=== PATIENT | female | born 1960 | race Caucasian/White ===

== ENCOUNTER 2019-07-01 13:44 | Inpatient (IN) | payer OTHER ==
[~2019-07-01] VITALS: Ht 162.6 cm; Wt 70.3 kg
[~2019-07-01 13:44] MED LIST: HYDROmorphone 1 MG/ML AMP ONE; LIDOCAINE 2% 100 MG/5 ML SYR IVP ONE
[2019-07-01 14:03] VITALS: BP 119/74
--- NOTE | 2019-07-01 14:03 | NUR ---
PT TRIAGED, SENT BACK TO LOBBY AWAITING FOR BED
[2019-07-01] MEDS ORDERED: IBUPROFEN 600 MG TAB PO ONE (14:20)
--- NOTE | 2019-07-01 14:45 | NUR ---
Patient ambulated to bed 5.
--- NOTE | 2019-07-01 14:50 | NUR ---
PT BIB FAMILY C/O BURNING EPIGASTRIC PAIN THAT RADIATES TO RUQ AND LUQ PAIN AT 8/10 X5 DAYS, INCREASES W/ EATING GREASY FOODS. + NAUSEA PMH:HYPERLIPIDEMIA
[2019-07-01 14:53] LABS: APPEARANCE,URINE CLEAR (CLEAR); BILIRUBIN,URINE 2+ (NEGATIVE); BLOOD, URINE 1+ (NEGATIVE); COLOR,URINE YELLOW (YELLOW); LEUKOCYTE ESTERASE ,URINE TRACE (NEGATIVE); NITRITE, URINE NEGATIVE (NEGATIVE); UGLUCOSE NEGATIVE (NEGATIVE)
[2019-07-01] MEDS ORDERED: NACL 0.9% 1,000 ML IV ONE (14:55)
[2019-07-01 14:59] LABS: BASOPHILS % (AUTO) 0.3 % (0.0-2.0); EOSINOPHILS # (AUTO) 0.1 K/uL (0-0.4); EOSINOPHILS % (AUTO) 0.8 % (0.0-4.0); HEMATOCRIT 40.2 % (36-48); HEMOGLOBIN 13.3 g/dL (12.0-16.0); LYMPHOCYTES % (AUTO) 8.6 % (20.5-51.1); MEAN CORPUSCULAR HEMOGLOBIN 30 pg (27-31); MEAN CORPUSCULAR HGB CONC 33 g/dL (33-37); MEAN CORPUSCULAR VOLUME 89.6 fL (80-94); MONOCYTES # (AUTO) 0.9 K/uL (0.8-1.0); MONOCYTES % (AUTO) 8.3 % (1.7-9.3); NEUTROPHILS # (AUTO) 9.2 K/uL (1.8-7.7); PLATELET COUNT (AUTO) 318 K/uL (140-450); RED BLOOD CELL COUNT(AUTO) 4.49 MIL/uL (4.20-5.40); RED CELL DISTRIBUTION WIDTH 13.5 % (11.6-13.7); WHITE BLOOD COUNT (AUTO) 11.2 K/uL (4.8-10.8)
--- NOTE | 2019-07-01 15:08 | NUR ---
ER AT BEDSIDE
[2019-07-01 15:14] LABS: ANION GAP 16.6 (8-16); CARBON DIOXIDE 23.1 mmol/L (21-32); CREATININE 0.9 mg/dL (0.6-1.3); POTASSIUM 3.7 mmol/L (3.5-5.1)
[2019-07-01 15:21] LABS: TOTAL BILIRUBIN 1.4 mg/dL (0.0-1.0)
[2019-07-01] MEDS ORDERED: metroNIDAZOLE 500 MG/NS PREMIX 100 ML IV ONE (15:40)
--- NOTE | 2019-07-01 15:58 | NUR ---
Pt states she takes a medication for cholesterol but is unable to recall name and dosage but states she takes it once at nights.
[2019-07-01] MEDS ORDERED: cefTRIAXone 1,000 MG VIAL ONE (16:02)
--- NOTE | 2019-07-01 16:19 | NUR ---
LAB AT BEDSIDE FOR BLOOD CULTURE
--- NOTE | 2019-07-01 17:06 | NUR ---
SURGEON DR FULLER AT BEDSIDE
[2019-07-01] MEDS ORDERED: ONDANSETRON 4 MG/2 ML VIAL IVP PRN (17:10)
[2019-07-01] MEDS ORDERED: LORazepam 2 MG/ML VIAL IVP PRN (17:10)
[2019-07-01] MEDS ORDERED: MORPHINE SULFATE 4 MG/ML SYR IVP PRN (17:10)
[2019-07-01] MEDS ORDERED: ZOLPIDEM 5 MG TAB PO PRN (17:15)
--- NOTE | 2019-07-01 18:00 | NUR ---
Patient will be admitted to care of DR PATEL. Admited to MED/SURG. Will go to room 106B. Belongings list completed. Report to DARION DAVIS.
--- NOTE | 2019-07-01 18:00 | NUR ---
RECEIVED BEDSIDE REPORT FROM ER NURSE. PATIENT IS AWAKE, ALERT AND ORIENTEDX4. NO SIGNS OF DISTRESS ON RA. SKIN IS INTACT. IV ON L WRIST 20G. CLEAN, DRY AND INTACT. AMBULATORY. CONTINENT. ABLE TO MAKE NEEDS KNOWN. IRISH SPEAKER. PATIENT UNDERSTANDS NO OPIOIDS AT THIS TIME FOR NM SCAN AND NPO. WILL CONTINUE TO MONITOR. MRSA SWAB DONE. CALL LIGHT WITHIN REACH. Addendum: 07/01/19 at 1914 by Edilia Constantino RN B/P 127/75 HR 87 TEMP 98.4 96%RA RR 18
[2019-07-01] MEDS: LACTATED RINGERS 1,000 ML IV SCH (18:28)
--- NOTE | 2019-07-01 19:14 | NUR ---
GAVE BEDSIDE REPORT TO INFORMATION SECURITY MANAGER NURSE. PATIENT ENDORSED IN STABLE CONDITION
[2019-07-01 19:30] VITALS: BP 112/72
--- NOTE | 2019-07-01 19:30 | NUR ---
Admitted from ER TO MED SURGICAL UNIT , with chief complaint of ABDOMINAL PAIN FOR ONE WEEK, 59 y/o ,Female, Cooperative, A/OX4. RESPIRATION EVEN AND UNLABORED. IV OF LR AT 80 ML/HR INFUSING LEFT WRIST G20. INDEPENDENT, ABLE TO AMBULATE BY HERSELF. NPO FOR HIDA SCAN. HEAD TO TOE ASSESSMENT DONE WITH CHARGE NURSE BIJU, SKIN IS INTACT. PLAN OF CARE FOR THE SHIFT DISCUSSED WITH PATIENT AND DAUGHTER. VERBALIZED UNDERSTANDING. DENIES PAIN 0/10.oriented to call light, bed, phone,television, bathroom, smoking policy,visiting hours, procedures, ID bracelet on. Belongings list checked.
--- NOTE | 2019-07-01 20:10 | NUR ---
TAKEN TO NUCLEAR DEPT FOR HIDA SCAN BY TECH VIA WHEELCHAIR.
--- NOTE | 2019-07-01 20:24 | NUR ---
JOSEFINA DAVIS WENT TO NUCLEAR MED AND GIVE MORPHINE ORDERED. Addendum: 07/01/19 at 2316 by Shelly Floyd LVN CORRECTION: TIME MORPHINE GIVEN IS 2123 NOT 2023.
--- NOTE | 2019-07-01 21:07 | NUR ---
NUCLEAR MED TECH CALLED, GALLBLADDER CAN'T BE SEEN, NEED TO GIVE MORPHINE 2 MG. TO PATIENT.
[2019-07-01] MEDS: MORPHINE SULFATE 2 MG/ML SYR IVP PRN (21:24)
--- NOTE | 2019-07-01 22:10 | NUR ---
BACK FROM HIDA SCAN. DAUGHTER AT THE BEDSIDE.
[2019-07-01] MEDS: PIPERACILLIN/TAZOBACTAM 3.375 GM in DEXTROSE 5% 50 ML IV SCH (23:06)
--- NOTE | 2019-07-01 23:30 | NUR ---
FOLLOW UP JUDSON OF RADIOLOGY REGARDING CT OF ABD AND PELVIS ORDER FOR PATIENT, WILL CALL BACK, PT HAD HIDA SCAN AT 2200.
[2019-07-02] VITALS: BP 109/67
--- NOTE | 2019-07-02 03:30 | NUR ---
FOLLOW UP WITH JUDSON REGARDING CT OF ABDOMEN AND PELVIS, WILL DO IT AT 0600.
[2019-07-02] MEDS ORDERED: PIPERACILLIN/TAZOBACTAM 3.375 GM VIAL IV ONE (04:09)
[2019-07-02] MEDS: PIPERACILLIN/TAZOBACTAM 3.375 GM in DEXTROSE 5% 50 ML IV SCH ×3 (05:03→20:34)
[2019-07-02] MEDS: LACTATED RINGERS 1,000 ML IV SCH ×2 (05:40→18:10)
--- NOTE | 2019-07-02 06:00 | NUR ---
TO RADIOLOGY FOR CT OF ABD/PELVIS VIA W/C WITH YOUTH DEVELOPMENT SPECIALIST.
--- NOTE | 2019-07-02 06:25 | NUR ---
BACK FROM RADIOLOGY TO BED.
--- NOTE | 2019-07-02 07:15 | NUR ---
RESTING COMFORTABLY IN BED. CONDITION REMAIN STABLE. ENDORSED TO AM SHIFT NURSE FOR CONTINUITY OF CARE.
[2019-07-02] MEDS ORDERED: DEXAMETHASONE 4 MG/ML VIAL ONE (07:28)
[2019-07-02] MEDS ORDERED: LIDOCAINE 2% 100 MG/5 ML SYR IVP ONE (07:28)
[2019-07-02] MEDS ORDERED: DESFLURANE 240 ML BTL INH ONE (07:28)
[2019-07-02] MEDS ORDERED: SUCCINYLCHOLINE CHLORIDE 200 MG/10 ML VIAL IVP ONE (07:28)
[2019-07-02] MEDS ORDERED: KETOROLAC 30 MG/ML VIAL ONE (07:28)
[2019-07-02] MEDS ORDERED: ROCURONIUM 50 MG/5 ML VIAL IV ONE (07:28)
[2019-07-02] MEDS ORDERED: PROPOFOL 200 MG/20 ML VIAL IV ONE (07:28)
[2019-07-02] MEDS ORDERED: ONDANSETRON 4 MG/2 ML VIAL ONE (07:28)
[2019-07-02 07:38] LABS: BASOPHILS % (AUTO) 0.4 % (0.0-2.0); EOSINOPHILS # (AUTO) 0.3 K/uL (0-0.4); HEMATOCRIT 37.9 % (36-48); HEMOGLOBIN 12.4 g/dL (12.0-16.0); LYMPHOCYTES # (AUTO) 1.3 K/uL (2.5-16.5); LYMPHOCYTES % (AUTO) 14.6 % (20.5-51.1); MEAN CORPUSCULAR HEMOGLOBIN 30 pg (27-31); MEAN CORPUSCULAR HGB CONC 33 g/dL (33-37); MEAN CORPUSCULAR VOLUME 90.1 fL (80-94); MONOCYTES # (AUTO) 0.6 K/uL (0.8-1.0); MONOCYTES % (AUTO) 6.9 % (1.7-9.3); NEUTROPHILS # (AUTO) 6.9 K/uL (1.8-7.7); NEUTROPHILS % (AUTO) 75.1 % (42.2-75.2); PLATELET COUNT (AUTO) 275 K/uL (140-450); RED CELL DISTRIBUTION WIDTH 13.2 % (11.6-13.7); WHITE BLOOD COUNT (AUTO) 9.2 K/uL (4.8-10.8)
--- NOTE | 2019-07-02 07:48 | NUR ---
RECEIVED BEDSIDE REPORT FROM NUTRITION INSTRUCTOR RN FOR CONTINUITY OF CARE. PATIENT IS AAOX4. NO SIGNS OF DISTRESS ON RA. SKIN IS INTACT. IV ON L WRIST 20G. CLEAN, DRY AND INTACT. AMBULATORY. CONTINENT. ABLE TO MAKE NEEDS KNOWN. AFGHAN SPEAKER. PATIENT NPO AT THIS TIME DUE TO POSSIBLE SURGERY. WILL CONTINUE TO MONITOR. CALL LIGHT WITHIN REACH. BED IN LOW POSITION.
[2019-07-02 08:05] VITALS: BP 121/71
[2019-07-02 08:15] LABS: ALBUMIN 2.5 g/dL (3.4-5.0); ANION GAP 15.7 (8-16); CARBON DIOXIDE 23.9 mmol/L (21-32); CREATININE 0.8 mg/dL (0.6-1.3); POTASSIUM 3.6 mmol/L (3.5-5.1); TOTAL BILIRUBIN 1.4 mg/dL (0.0-1.0)
--- NOTE | 2019-07-02 08:28 | NUR ---
PATIENT HAS BEEN SCREENED AND CATEGORIZED LOW NUTRITION RISK. PATIENT WILL BE SEEN WITHIN 7 DAYS OF ADMISSION. 07/08/[address]
[2019-07-02] MEDS: ENOXAPARIN 40 MG/0.4 ML SYR SUBQ SCH (09:07)
--- NOTE | 2019-07-02 09:10 | NUR ---
ADMINISTERED MORNING MEDS TO PT. PT TOLERATED WELL. ALL NEEDS MET. WILL CONTINUE TO ROUND FREQUENTLY ON PT. BED IN LOW POSITION, CALL LIGHT WITHIN REACH.
--- NOTE | 2019-07-02 11:21 | NUR ---
PT SLEEPING. ALL NEEDS MET. NO SIGNS OF PAIN OR DISTRESS NOTED. WILL CONTINUE TO ROUND FREQUENTLY ON PT.
--- NOTE | 2019-07-02 13:30 | NUR ---
PT RESTING IN BED WITH DAUGHTER AT BEDSIDE. ALL NEEDS MET. PT DENIES PAIN OR DISTRESS AT THIS TIME. WILL CONTINUE TO ROUND FREQUENTLY ON PT.
[2019-07-02] MEDS: ACETAMINOPHEN 325 MG TAB PO PRN ×2 (13:51→19:15)
--- NOTE | 2019-07-02 15:39 | NUR ---
PT RESTING IN BED WITH DAUGHTER AT BEDSIDE. ALL NEEDS MET. WILL CONTINUE TO ROUND FREQUENTLY ON PT.
[2019-07-02 16:00] VITALS: BP 115/69
--- NOTE | 2019-07-02 19:27 | NUR ---
ENDORSED PT TO TOOL AND FIXTURE REPAIRER FOR CONTINUITY OF CARE. PT IN STABLE CONDITION
--- NOTE | 2019-07-02 19:28 | NUR ---
RECEIVED PT IN STABLE CONDITION FROM AM NURSE. MED SURG PT. AWAKE.ALERT AND ORIENTED X4. TAIWANESE SPEAKING. WITH NO C/O VERY MILD PAIN AND AM NURSE JUST MEDICATED WITH TYLENOL . IVF INFUSING WELL ON THE LT WRIST G#20. CLEAR AND PATENT. PLAN OF CARE DISCUSSED AND STILL NEED SOME EXPLANATION ABOUT THE SURGERY . CONSENT STILL NEED TO BE SIGNED PER AM NURSE. PT TO BE NPO AFTER MN. FREQ ROUNDS NEEDED. BED ON LOW POSITION. CALL LIGHT PLACED WITHIN REACH. WILL CONTINUE TO MONITOR.
--- NOTE | 2019-07-02 20:40 | NUR ---
PT FEEL HER TEMP IS HIGH. . TEMP CHECKED RESULT 100.4 AM NURSE JUST GAVE TYLENOL @1915 . COOLING MEASURES DONE . WILL CONTINUE TO MONITOR.
--- NOTE | 2019-07-02 20:55 | NUR ---
DR. TIMOTHY DE LOS SANTOS, ANESTHESIOLOGIST CALLED AND ORDERED TO HAVE CXR AND EKG DONE TONIGHT FOR PRE OP. HE SAID PT, PTT NOT NEEDED.
--- NOTE | 2019-07-02 20:55 | NUR ---
ADDITIONAL NOTES : DR. DE LOS SANTOS WANTS TO BE CALLED FOR ANY ABNORMAL RESULT FROM EKG AND CXR.
[2019-07-03 00:35] VITALS: BP 141/81
[2019-07-03] MEDS: ACETAMINOPHEN 325 MG TAB PO PRN ×2 (00:39→13:48)
--- NOTE | 2019-07-03 00:39 | NUR ---
TEMP 100.4 ORALLY. TYLENOL 650 MG PO GIVEN WITH SOME SIPS WATER. COOLING MEASURES DONE.
--- NOTE | 2019-07-03 02:00 | NUR ---
MADE ROUNDS. SLEEPING WELL . NO S/S OF ANY DISCOMFORT NOTED.
[2019-07-03 04:29] LABS: ALBUMIN 2.5 g/dL (3.4-5.0); ANION GAP 11.9 (8-16); CARBON DIOXIDE 26.9 mmol/L (21-32); CREATININE 0.8 mg/dL (0.6-1.3); POTASSIUM 3.8 mmol/L (3.5-5.1); TOTAL BILIRUBIN 1.3 mg/dL (0.0-1.0)
--- NOTE | 2019-07-03 04:30 | NUR ---
LATEST TEMP THIS AM 98.9. AFEBRILE.
[2019-07-03] MEDS: LACTATED RINGERS 1,000 ML IV SCH ×2 (04:38→19:10)
[2019-07-03] MEDS: PIPERACILLIN/TAZOBACTAM 3.375 GM in DEXTROSE 5% 50 ML IV SCH ×3 (04:40→20:51)
[2019-07-03 05:19] LABS: BASOPHILS % (AUTO) 0.4 % (0.0-2.0); EOSINOPHILS # (AUTO) 0.2 K/uL (0-0.4); EOSINOPHILS % (AUTO) 1.6 % (0.0-4.0); HEMATOCRIT 37.9 % (36-48); HEMOGLOBIN 12.4 g/dL (12.0-16.0); LYMPHOCYTES # (AUTO) 1.3 K/uL (2.5-16.5); MEAN CORPUSCULAR HEMOGLOBIN 29 pg (27-31); MEAN CORPUSCULAR HGB CONC 33 g/dL (33-37); MONOCYTES # (AUTO) 0.9 K/uL (0.8-1.0); MONOCYTES % (AUTO) 8.2 % (1.7-9.3); NEUTROPHILS # (AUTO) 9.1 K/uL (1.8-7.7); NEUTROPHILS % (AUTO) 78.8 % (42.2-75.2); PLATELET COUNT (AUTO) 318 K/uL (140-450); RED BLOOD CELL COUNT(AUTO) 4.22 MIL/uL (4.20-5.40); RED CELL DISTRIBUTION WIDTH 13.5 % (11.6-13.7); WHITE BLOOD COUNT (AUTO) 11.5 K/uL (4.8-10.8)
--- NOTE | 2019-07-03 06:40 | NUR ---
PRE-OP BATH DONE ON PT. WILL ENDORSE TO AM NURSE. CALLED OR AND ABLE TO TALK TO BAM THAT PT STILL NEED TO TALK TO THE SURGEON FOR FURTHER INFORMATIONS ABOUT THE PROCEDURE/SURGERY TO BE DONE. SHE SAID SHE WILL TELL THE AM OR NURSES.
--- NOTE | 2019-07-03 07:15 | NUR ---
ENDORSED PT IN STABLE CONDITION TO AM NURSE.
--- NOTE | 2019-07-03 07:32 | NUR ---
RECEIVED REPORT FOR CONTINUITY OF CARE FROM YESTERDAY. PT IN STABLE CONDITION. WILL ROUND FREQUENTLY ON PT.
--- NOTE | 2019-07-03 07:34 | NUR ---
PT TAKEN TO OR. PT LEFT IN STABLE CONDITION.
[2019-07-03] MEDS ORDERED: LIDOCAINE 1% 500 MG/50 ML VIAL ONE (07:40)
[2019-07-03] MEDS ORDERED: BUPIVACAINE-MPF/EPI 0.25% 30 ML VIAL INJ ONE (07:40)
[2019-07-03] MEDS: ENOXAPARIN 40 MG/0.4 ML SYR SUBQ SCH (09:00)
[2019-07-03] MEDS ORDERED: MORPHINE SULFATE 2 MG/ML SYR IVP PRN (10:30)
[2019-07-03] MEDS ORDERED: ONDANSETRON 4 MG/2 ML VIAL IVP PRN ×2 (11:15→11:20)
[2019-07-03] MEDS ORDERED: HYDROmorphone 1 MG/ML AMP IVP PRN (11:20)
--- NOTE | 2019-07-03 11:35 | NUR ---
PT RETURNED FOR OR. PT IN STABLE CONDITION, ALL NEEDS MET. WILL ASSESS PT FREQUENTLY.
--- NOTE | 2019-07-03 12:59 | NUR ---
SYLVESTER Assessment/Discharge Plan High Risk DC Screen Ponce: Carmencita Garcia Home Relationship: daughter Pre-Admission Living Arrangements: Lives with Other Other: : Jose Garcia Prior ADL Independent Current Home Health Name/Tel: N/A Current DME/02 Name/Tel: N/A Current Hospice Name/Tel: N/A Current Dialysis Name/Tel: N/A Healthcare Decision Maker: Patient Advance Directive No Information Taught: Community Resources Person Taught: Children Patient Teaching Tools: Community Resources Verbal Factors Affecting Learning: None Participation Level: Active Evaluation: Gestures Understanding Verbalizes Understanding Educator: SYLVESTER Serra Discipline: Case Mgt/Social Svcs Tentative Discharge Plan Summary: Patient is a 59 year old female admitted for acute cholecystitis. I met with patient and patient's daughter Meredith Garcia at bedside. Patient alert and oriented x4. Patient speaks Algerian. Meredith speaks Slovak and Algerian. Patient lives at home with her Jose Garcia and plans to return home upon discharge. Patient's pcp is and her last appt was about 8 months ago. She does not have any difficulty filling her prescriptions at pharmacy. Patient has had on and off depression for about 1 year. She denied SI and HI. She is not taking medication for depression or receiving counseling/mental health services. I provided her with education on [facility], www.[facility].org for community resources including counseling/mental health services. Patient denied alcohol/substance abuse. Patient is not interested on Advance Directive. Patient and Meredith do not have any questions/concerns at this time. I provided Meredith with my contact information. Furnace Attendant and/or [employer] will follow up as needed. Signature: SYLVESTER Serra Date: Jul 02, 2019
--- NOTE | 2019-07-03 13:42 | NUR ---
PT LEFT IN STABLE CONDITION, ALL NEEDS MET. UBALDO LCONTINUE TO ROUND FREQUENTLY ON PT.
[2019-07-03 16:00] VITALS: BP 116/69
[2019-07-03] MEDS: HYDROcodone/APAP 5/325 MG 1 TAB TAB PO PRN ×2 (16:42→23:05)
--- NOTE | 2019-07-03 19:49 | NUR ---
ENDORSED PT TO FORENSICS TEAM DIRECTOR FOR CONTINUITY OF CARE. PT IN STABLE CONDITION.
--- NOTE | 2019-07-03 19:51 | NUR ---
RECEIVED AWAKE AND ALERT. NO COMPLAINTS DONE AT THIS TIME. ASHLEY IN PLACE. S/P CHOLECYSTECTOMY TODAY. INCISION SITES INTACT WITH DERMA LIU AND NO BLEEDING NOTED. CARE PLANS FOR THE NIGHT DISCUSSED WITH THEM. DAUGHTER AT BEDSIDE. CALL LIGHT WITH IN REACH FOR HELP. ORIENTED X 4.
[2019-07-03 23:06] VITALS: BP 126/70
--- NOTE | 2019-07-04 00:16 | NUR ---
RECEIVED PATIENT FROM NOGALES FOR CONTINUITY OF CARE. PATIENT SLLEPING AT THIS TIME, NO SIGN OF RESPIRATORY DISTRESS.
--- NOTE | 2019-07-04 00:16 | NUR ---
ENDORSED TO CHARGE NURSE FOR CONTINUITY OF CARE. PT. SLEEPING AT THIS TIME.
--- NOTE | 2019-07-04 02:00 | NUR ---
PT SLEEPING WHEN CHECKED, NO SIGN OF DISTRESS.
--- NOTE | 2019-07-04 04:30 | NUR ---
PT AWAKE, GIVEN IS, INSTRUCTED HOW TO USE IT , UNDERSTAND INSTRUCTION.
[2019-07-04] MEDS: PIPERACILLIN/TAZOBACTAM 3.375 GM in DEXTROSE 5% 50 ML IV SCH ×3 (04:37→20:27)
[2019-07-04] MEDS: HYDROcodone/APAP 5/325 MG 1 TAB TAB PO PRN ×2 (05:18→20:26)
[2019-07-04 05:19] VITALS: BP 119/68
[2019-07-04 05:48] LABS: BASOPHILS % (AUTO) 0.2 % (0.0-2.0); EOSINOPHILS # (AUTO) 0.1 K/uL (0-0.4); EOSINOPHILS % (AUTO) 0.7 % (0.0-4.0); HEMOGLOBIN 12.4 g/dL (12.0-16.0); LYMPHOCYTES # (AUTO) 1.4 K/uL (2.5-16.5); LYMPHOCYTES % (AUTO) 13.1 % (20.5-51.1); MEAN CORPUSCULAR HEMOGLOBIN 30 pg (27-31); MEAN CORPUSCULAR HGB CONC 33 g/dL (33-37); MEAN CORPUSCULAR VOLUME 90.8 fL (80-94); MONOCYTES # (AUTO) 0.6 K/uL (0.8-1.0); MONOCYTES % (AUTO) 5.5 % (1.7-9.3); NEUTROPHILS # (AUTO) 8.8 K/uL (1.8-7.7); NEUTROPHILS % (AUTO) 80.5 % (42.2-75.2); PLATELET COUNT (AUTO) 378 K/uL (140-450); RED BLOOD CELL COUNT(AUTO) 4.18 MIL/uL (4.20-5.40); RED CELL DISTRIBUTION WIDTH 13.3 % (11.6-13.7); WHITE BLOOD COUNT (AUTO) 10.9 K/uL (4.8-10.8)
[2019-07-04 06:19] LABS: ALBUMIN 2.2 g/dL (3.4-5.0); ANION GAP 10.2 (8-16); CARBON DIOXIDE 29.4 mmol/L (21-32); CREATININE 0.8 mg/dL (0.6-1.3); POTASSIUM 3.6 mmol/L (3.5-5.1)
--- NOTE | 2019-07-04 06:22 | NUR ---
RESTING QIUIETLY, NO DISTRESS, COMFORTABLE.
--- NOTE | 2019-07-04 07:05 | NUR ---
RECEIVED PATIENT FROM PUNCH OPERATOR NURSE. PATIENT IS LAYING IN BED. AAOX4. NO SIGNS OF DISTRESS NOTED. RESPIRATIONS EVEN AND UNLABORED, ON ROOM AIR. VISIBLE CHEST RISE NOTED. ABDOMEN SOFT AND NONTENDER. BOWEL SOUNDS ACTIVE [id number]. IV ON THE LEFT WRIST RUNNING LR AT 80 ML/HR. IV PATENT AND INTACT. S/P LAP CHOLECYSTECTOMY, THREE INCISIONS NOTED, ONE IN LEFT UPPER ABDOMEN AND LEFT AND RIGHT LOWER ABDOMEN. ASHLEY DRAIN, 5ML, SEROSANGUINEOUS. BED IN LOW POSITION. CALL LIGHT IS WITHIN REACH. WILL CONTINUE TO MONITOR
[2019-07-04] MEDS ORDERED: DESFLURANE 240 ML BTL INH ONE (07:28)
[2019-07-04] MEDS ORDERED: SUCCINYLCHOLINE CHLORIDE 200 MG/10 ML VIAL IVP ONE (07:28)
[2019-07-04] MEDS ORDERED: ROCURONIUM 50 MG/5 ML VIAL IV ONE (07:28)
[2019-07-04] MEDS ORDERED: KETOROLAC 30 MG/ML VIAL ONE (07:28)
[2019-07-04] MEDS ORDERED: PROPOFOL 200 MG/20 ML VIAL IV ONE (07:28)
[2019-07-04] MEDS: ENOXAPARIN 40 MG/0.4 ML SYR SUBQ SCH (08:35)
[2019-07-04] MEDS: LACTATED RINGERS 1,000 ML IV SCH ×3 (08:36→22:54)
--- NOTE | 2019-07-04 08:43 | NUR ---
GIVEN LOVENOX IN THE RIGHT LOWER ABDOMEN. PLATELET IS 378. EXPLAINED TO PATIENT AND FAMILY INDICATION. BOTH VERBALIZED UNDERSTANDING. WILL CONTINUE TO MONITOR
--- NOTE | 2019-07-04 09:00 | NUR ---
DC PLANNING 59 YRS OLD WAS ADMITTED FROM HOME WITH A DX OF ACUTE CHOLECYSTITIS . HIDA SCAN AND ULTRASOUND OF THE ABD SHOWED CHOLECYSTITIS . LAP OLGA WITH ASHLEY DRAINAGE PERFORMED BY DR FULLER SURGEON ON 07/03/19 TOLERATED WELL , CONTINUE IVF , ZOSYN IV ABX AND PAIN MEDICATION WITH NORCO, VITALS STABLE DC PLAN PER SURGEON CLEARANCE. CM TO FOLLOW
--- NOTE | 2019-07-04 09:39 | NUR ---
PATIENT IS AWAKE. TALKING TO FAMILY. PATIENT DENIES PAIN OR ANY DISCOMFORT. ASHLEY DRAIN 5ML, SEROSANGUINEOUS DRAINAGE. WILL CONTINUE TO MONITOR
[2019-07-04] MEDS ORDERED: HYDR-5122 PO (10:05)
[2019-07-04 10:25] VITALS: BP 102/65
[2019-07-04] MEDS: MORPHINE SULFATE 2 MG/ML SYR IVP PRN (10:41)
--- NOTE | 2019-07-04 10:42 | NUR ---
GIVEN MORPHINE VIA IVP. BP IS 105/68, HR: 93, O2SAT 96%. EXPLAINED TO PATIENT INDICATION. PATIENT VERBALIZED UNDERSTANDING. WILL REASSESS PAIN
--- NOTE | 2019-07-04 12:29 | NUR ---
PATIENT IS EATING AT THIS TIME. NO SIGNS OF DISTRESS NOTED. PATIENT STATED HAVING FEVER. CHECKED TEMPERATURE IT WAS 99.2. RECHECKED TEMPERATURE IT WAS 99.0. WILL CONTINUE TO MONITOR
[2019-07-04] MEDS: ACETAMINOPHEN 325 MG TAB PO PRN (12:56)
--- NOTE | 2019-07-04 13:00 | NUR ---
GIVEN TYLENOL FOR MILD PAIN. EXPLAINED TO PATIENT INDICATION AND SIDE EFFECTS. BP 102/68, HR 81, O2SAT 95%. WILL CONTINUE TO MONITOR
--- NOTE | 2019-07-04 13:15 | NUR ---
PER DR. HARVEY, HE WILL REMOVE PATIENTS ASHLEY DRAIN. SUTURE KIT AND MORPHINE ORDERED.
[2019-07-04] MEDS ORDERED: MORPHINE SULFATE 4 MG/ML SYR IVP SCH (13:26)
--- NOTE | 2019-07-04 13:27 | NUR ---
GIVEN MORPHINE VIA IVP PER DR. HARVEY TO REMOVE ASHLEY DRAIN. PATIENT BP 114/53, HR 83, O2SAT 95%, RESP 16, ROOM AIR. PATIENT IS EDUCATED ON MEDICATION INDICATION. PATIENT VERBALIZED UNDERSTANDING. WILL CONTINUE TO MONITOR
--- NOTE | 2019-07-04 14:55 | NUR ---
ASHLEY DRAINED REMOVED BY DR. HARVEY. 5ML, DRAINAGE, SEROSANGUINEOUS. PATIENT TOLERATED WELL. PER DR. HARVEY, PATIENT WILL STAY FOR THE NIGHT.
--- NOTE | 2019-07-04 14:56 | NUR ---
DR. HARVEY MADE VERBAL ORDER FOR PATIENT TO STAY FOR THE NIGHT. PATIENT WILL BE DISCHARGED TOMORROW AFTER LUNCH.
[2019-07-04 16:00] VITALS: BP 111/64
--- NOTE | 2019-07-04 16:01 | NUR ---
VITAL SIGNS TAKEN. PATIENT REPORTS 07/10 PAIN. TOLERABLE. PATIENT RESPIRATIONS EVEN AND UNLABORED, ROOM AIR. FAMILY AT BEDSIDE. BED IN LOW POSITION. CALL LIGHT IS WITHIN REACH. WILL CONTINUE TO MONITOR
--- NOTE | 2019-07-04 18:25 | NUR ---
PATIENT IS EATING DINNER AT THIS TIME. NO SIGNS OF DISTRESS NOTED. PATIENT DENIES PAIN. FAMILY AT BEDSIDE.
--- NOTE | 2019-07-04 19:26 | NUR ---
ENDORSED PATIENT TO NURSE SHIFT NURSE. PATIENT IS IN STABLE CONDITION
--- NOTE | 2019-07-04 19:30 | NUR ---
RECEIVED FROM AM RN IN BED AWAKE AND ALERT. NO SOB. DENIES PAIN AT THIS TIME. ASHLEY IN PLACE. CALL LIGHT WITH IN REACH. CARE PLANS FOR THE NIGHT DISCUSSED WITH HER. LAP OLGA SITE INTACT AND NO BLEEDING. Addendum: 07/04/19 at 1947 by Flores Mao RN ASHLEY NOT IN PLACE . ABLE TO VERBALIZE NEEDS WELL.
[2019-07-04 20:15] VITALS: BP 120/71
--- NOTE | 2019-07-04 20:33 | NUR ---
DAUGHTER STILL AT BEDSIDE. PT. ABLE TO VERBALIZE NEEDS WELL IN SERBIAN. DAUGHTER SPEAKS WELL FRENCH. ENCOURAGED TO GO RESTROOM WITH DAUGHTER'S HELP AND USE SPIROMETER WHEN AWAKE. VERBALIZE UNDERSTANDING. MEDICATED WITH NORCO REQUESTED RT INCISIONAL SITES HURTING.
--- NOTE | 2019-07-04 22:35 | NUR ---
PT. SLEEPING AT THIS TIME. NO RESTLESSNESS. CALL LIGHT WITH IN REACH AT BEDSIDE.
[2019-07-05 01:13] VITALS: BP 132/80
--- NOTE | 2019-07-05 01:16 | NUR ---
AWAKE AT THIS TIME. DENIES PAIN. ENCOURGED TO USE CALL LIGHT FOR DOLOR OR ANY HELP SHE MAY NEED.
[2019-07-05] MEDS: ACETAMINOPHEN 325 MG TAB PO PRN ×2 (01:20→18:24)
--- NOTE | 2019-07-05 01:21 | NUR ---
ADMINISTERED TYLENOL 650 MG P.O. RT PT. TEMPERATURE PER AXILLA IS 100.8 . TOLERATED WELL. NO COMPLAINTS DONE. COOLING MEASURES DONE.
--- NOTE | 2019-07-05 03:35 | NUR ---
SLEEPING. NO RESTLESSNESS. CALL LIGHT WITH IN REACH AT BED SIDE. A/O X 4. ROM X 4. CLEAR SPEECH.
[2019-07-05] MEDS: PIPERACILLIN/TAZOBACTAM 3.375 GM in DEXTROSE 5% 50 ML IV SCH ×3 (06:05→20:05)
--- NOTE | 2019-07-05 07:00 | NUR ---
SLEPT WELL THIS SHIFT. ABLE TO AMBULATE BY HERSELF TO RESTROOM INSIDE ROOM. AFEBRILE AT THIS TIME. SMILING. GOOD AFFECT. CALL LIGHT WITH IN REACH. NO BLEEDING TO LAP CHOLECYSTECTOMY SITE.
[2019-07-05 07:11] LABS: BASOPHILS % (AUTO) 0.6 % (0.0-2.0); EOSINOPHILS # (AUTO) 0.1 K/uL (0-0.4); EOSINOPHILS % (AUTO) 1.8 % (0.0-4.0); HEMATOCRIT 36.6 % (36-48); HEMOGLOBIN 11.9 g/dL (12.0-16.0); LYMPHOCYTES # (AUTO) 1.1 K/uL (2.5-16.5); LYMPHOCYTES % (AUTO) 15.9 % (20.5-51.1); MEAN CORPUSCULAR HEMOGLOBIN 29 pg (27-31); MEAN CORPUSCULAR HGB CONC 33 g/dL (33-37); MEAN CORPUSCULAR VOLUME 90.3 fL (80-94); MONOCYTES # (AUTO) 0.4 K/uL (0.8-1.0); MONOCYTES % (AUTO) 6.2 % (1.7-9.3); NEUTROPHILS # (AUTO) 5.5 K/uL (1.8-7.7); NEUTROPHILS % (AUTO) 75.5 % (42.2-75.2); PLATELET COUNT (AUTO) 350 K/uL (140-450); RED BLOOD CELL COUNT(AUTO) 4.06 MIL/uL (4.20-5.40); RED CELL DISTRIBUTION WIDTH 13.3 % (11.6-13.7); WHITE BLOOD COUNT (AUTO) 7.2 K/uL (4.8-10.8)
--- NOTE | 2019-07-05 07:15 | NUR ---
RECEIVED PATIENT FROM ELECTRONICS HARDWARE DESIGN ENGINEER NURSE. PATIENT IS LAYING IN BED. AAOX4. NO SIGNS OF DISTRESS NOTED. RESPIRATIONS EVEN AND UNLABORED, ON ROOM AIR. VISIBLE CHEST RISE NOTED. ABDOMEN SOFT AND NONTENDER. BOWEL SOUNDS ACTIVE [id number]. IV ON THE LEFT WRIST RUNNING LR AT 80 ML/HR. IV PATENT AND INTACT. S/P LAP CHOLECYSTECTOMY, THREE INCISIONS NOTED, ONE IN LEFT UPPER ABDOMEN AND LEFT AND RIGHT LOWER ABDOMEN. BED IN LOW POSITION. CALL LIGHT IS WITHIN REACH. WILL CONTINUE TO MONITOR
[2019-07-05 07:39] LABS: ALBUMIN 2.1 g/dL (3.4-5.0); ANION GAP 12.2 (8-16); CARBON DIOXIDE 27.1 mmol/L (21-32); CREATININE 0.7 mg/dL (0.6-1.3); POTASSIUM 3.3 mmol/L (3.5-5.1); TOTAL BILIRUBIN 0.6 mg/dL (0.0-1.0)
[2019-07-05 08:00] VITALS: BP 137/73
[2019-07-05] MEDS: HYDROcodone/APAP 5/325 MG 1 TAB TAB PO PRN ×2 (08:44→14:51)
--- NOTE | 2019-07-05 08:44 | NUR ---
GIVEN LOVENOX IN THE RIGHT LOWER ABDOMEN. PLATELET 350. EXPLAINED TO PATIENT INDICATION AND SIDE EFFECTS. PATIENT VERBALIZED UNDERSTANDING. WILL CONTINUE TO MONITOR
[2019-07-05] MEDS: ENOXAPARIN 40 MG/0.4 ML SYR SUBQ SCH (08:46)
--- NOTE | 2019-07-05 09:16 | NUR ---
MADE ROUNDS. PATIENT DENIES PAIN OR ANY DISCOMFORT. BED IN LOW POSITION. CALL LIGHT IS WITHIN REACH. DAUGHTER AT BEDSIDE. CALL LIGHT IS WITHIN REACH
--- NOTE | 2019-07-05 12:58 | NUR ---
GIVEN ZOSYN VIA IVPB. EXPLAINED TO PATIENT AND FAMILY INDICATIONS. ALL VERBALIZED UNDERSTANDING. WILL CONTINUE TO MONITOR.
--- NOTE | 2019-07-05 14:52 | NUR ---
GIVEN NORCO PO FOR PAIN 10. EXPLAINED TO PATIENT INDICATION AND SIDE EFFECTS. PATIENT VERBALIZED UNDERSTANDING. WILL CONTINUE TO MONITOR
[2019-07-05 16:00] VITALS: BP 114/72
--- NOTE | 2019-07-05 18:25 | NUR ---
GIVEN TYLENOL VIA PO FOR MILD PAIN, ABDOMEN AREA. EXPLAINED TO PT AND FAM INDICATION AND SIDE EFFECTS. PATIENT VERBALIZED UNDERSTANDING. WILL CONTINUE TO MONITOR
--- NOTE | 2019-07-05 19:28 | NUR ---
ENDORSED PATIENT TO BLOWER ROOM ATTENDANT NURSE. PATIENT IS IN STABLE CONDITION
--- NOTE | 2019-07-05 19:29 | NUR ---
RECEIVED REPORT FROM AM SHIFT NURSE . PATIENT ALERT AND ORIENTED X4. NO APPARENT DISTRESS NOTED. INTRODUCED SELF AND UPDATED BOARD. WITH PERIPHERAL IV ON LEFT WRIST 20 GUAGE RUNNING IVF. DENIES PAIN NOR DISCOMFORT. BED ON LOW POSITION. CALL LIGHT WITHIN REACH. WILL CONTINUE TO MONITOR.
--- NOTE | 2019-07-05 21:25 | NUR ---
PATIENT AWAKE IN BED, RESTING. NO APPARENT DISTRESS NOTED. DENIES PAIN NOR DISCOMFORT. WILL CONTINUE TO MONITOR.
--- NOTE | 2019-07-05 23:20 | NUR ---
PATIENT ASLEEP IN BED. NO APPARENT DISTRESS NOTED. VISIBLE CHEST RISE AND FALL NOTED. BED ON LOW POSITION. CALL LIGHT WITHIN REACH. WILL CONTINUE TO MONITOR.
[2019-07-06] VITALS: BP 100/73
--- NOTE | 2019-07-06 01:14 | NUR ---
ROUNDS DONE. PATIENT ASLEEP IN BED. VISIBLE CHEST RISE AND FALL NOTED. NO APPARENT DISTRESS NOTED. WILL CONTINUE TO MONITOR.
--- NOTE | 2019-07-06 03:10 | NUR ---
PATIENT ASLEEP IN BED. NO APPARENT DISTRESS NOTED. VISIBLE CHEST RISE AND FALL NOTED. WILL CONTINUE TO MONITOR.
--- NOTE | 2019-07-06 05:05 | NUR ---
PATIENT ASLEEP IN BED. NO APPARENT DISTRESS NOTED. VISIBLE CHEST RISE AND FALL NOTED. WILL CONTINUE TO MONITOR.
[2019-07-06] MEDS: ACETAMINOPHEN 325 MG TAB PO PRN (05:12)
[2019-07-06] MEDS: PIPERACILLIN/TAZOBACTAM 3.375 GM in DEXTROSE 5% 50 ML IV SCH (05:12)
--- NOTE | 2019-07-06 07:05 | NUR ---
ENDORSED TO AM SHIFT NURSE FOR CONTINUITY OF CARE.
--- NOTE | 2019-07-06 07:05 | NUR ---
RECEIVED REPORT FROM CATALYST CONCENTRATION OPERATOR NURSE DRAKE. PT AWAKE, ORIENTED X4. IV ON LT WRIST 20 GA RUNNING IVF TKO. RESPIRATIONS EVEN AND UNLABORED ON O2 3L VIA N/C. ACTIVE BS, SOFT ABD. PT IS ON FALL RISK PRECAUTIONS, SAFETY MEASURES IN PLACE. REVIEWED POC WITH PT, PT VERBALIZED UNDERSTANDING. Addendum: 07/06/19 at 0747 by Maggie Dockery RN PT IS AMBULATORY WITH STEADY GAIT. NO SIGNS OF DISTRESS AT THIS TIME. Addendum: 07/06/19 at 0748 by Maggie Dockery RN CLARIFICATION: PT IS ON RA, AND DOES NOT REQUIRE OXYGEN THERAPY.
[2019-07-06 07:37] LABS: BASOPHILS % (AUTO) 0.5 % (0.0-2.0); EOSINOPHILS # (AUTO) 0.1 K/uL (0-0.4); EOSINOPHILS % (AUTO) 1.8 % (0.0-4.0); LYMPHOCYTES # (AUTO) 0.9 K/uL (2.5-16.5); LYMPHOCYTES % (AUTO) 15.9 % (20.5-51.1); MEAN CORPUSCULAR HEMOGLOBIN 30 pg (27-31); MEAN CORPUSCULAR HGB CONC 33 g/dL (33-37); MEAN CORPUSCULAR VOLUME 89.5 fL (80-94); MONOCYTES # (AUTO) 0.4 K/uL (0.8-1.0); MONOCYTES % (AUTO) 6.5 % (1.7-9.3); NEUTROPHILS # (AUTO) 4.2 K/uL (1.8-7.7); NEUTROPHILS % (AUTO) 75.3 % (42.2-75.2); PLATELET COUNT (AUTO) 411 K/uL (140-450); RED BLOOD CELL COUNT(AUTO) 4.02 MIL/uL (4.20-5.40); RED CELL DISTRIBUTION WIDTH 13.4 % (11.6-13.7); WHITE BLOOD COUNT (AUTO) 5.5 K/uL (4.8-10.8)
[2019-07-06 07:55] LABS: ALBUMIN 2.2 g/dL (3.4-5.0); ANION GAP 12.8 (8-16); CARBON DIOXIDE 26.7 mmol/L (21-32); CREATININE 0.7 mg/dL (0.6-1.3); POTASSIUM 3.5 mmol/L (3.5-5.1); TOTAL BILIRUBIN 0.7 mg/dL (0.0-1.0)
[2019-07-06 08:00] VITALS: BP 121/79
[2019-07-06] MEDS: ENOXAPARIN 40 MG/0.4 ML SYR SUBQ SCH (09:24)
--- NOTE | 2019-07-06 09:24 | NUR ---
ADMINISTERED LOVENOX PER ORDER, PT IS AWARE OF INDICATIONS AND POTENTIAL SIDE EFFECTS.
--- NOTE | 2019-07-06 10:40 | NUR ---
PT HAS BEEN DISCHARGED. ALL PAPERWORK SIGNED, ALL QUESTIONS ANSWERED. ALL BELONGINGS AND PRESCRIPTIONS IN PT POSSESSION. IV DISCONTINUED WITH CANNULA INTACT. WRISTBANDS REMOVED. TRANSFERRED PT OUT OF UNIT WITH WHEELCHAIR, FAMILY AT SIDE. PT IS IN STABLE CONDITION.
--- NOTE | 2019-07-08 14:54 | NUR ---
PCP Appointment: JEY contacted Dr. Carolina Monteiro' office and spoke to Luli [phone]. JEY arranged for hospital follow up to be at 900 on 07/09/2019 @ [address] [facility] [place] [address]. Patient was notified. No further needs identified.
== END 2019-07-06 10:40 | disposition home or self-care (01) | DRG 263 ==
LOC: MED 13:44 → MTU 17:14
PROVIDERS: ADMIT Internal Medicine Pulmonary Disease; ATTEND Internal Medicine Pulmonary Disease
PROC: 0FT44ZZ Resection of Gallbladder, Percutaneous Endoscopic Approach (ICD-10-PCS; principal; 2019-07-05)
DX: K81.0 Acute cholecystitis (principal); E44.1 Mild protein-calorie malnutrition; Z68.26 Body mass index [BMI] 26.0-26.9, adult; D72.829 Elevated white blood cell count, unspecified
CPT/HCPCS: 36415; 71045; 76705; 78445; 80053; 81001; 81025; 83690; 85025; 86886; 86900; 86901; 87040; 87081; 87086; 88304; 93005; 96365; 96367; 99285; A9510; J0330; J0696; J1100; J1650; J1885; J2001; J2270; J2405; J2543; J2704; J3490; J7030; J7060; J7120; Q0092